=== PATIENT | female | born 1990 | race Caucasian/White ===

== ENCOUNTER 2023-10-12 21:07 | Emergency (ER) | payer BC ==
[2023-10-12 21:12] VITALS: RESP 18; TEMP 98.1
--- NOTE | 2023-10-12 21:23 | ED ---
Female Urogenital HPI - General Source: patient, RN notes reviewed Mode of arrival: ambulatory Limitations: no limitations <Malinda Neely - Last Filed: 10/12/23 23:44> <Madelin Watkins - Last Filed: 10/13/23 04:54> - General Chief complaint: Vaginal Bleeding Stated complaint: vaginal bleeding 13 weeks twins Time Seen by Provider: 10/12/23 21:22 - History of Present Illness Initial comments: 33-year-old female approximately 13 weeks gestation with twins presenting to the ER with a chief complaint of vaginal spotting. Patient is currently visiting from [place] on vacation. She states around 8:30 PM this evening she was resting and felt a gush in her vaginal region. She went to the bathroom and noticed blood. She states she called her OB who advised her to come to the ER for evaluation. She denies any abdominal cramping or pain. Denies any complications with current . Denies any fevers, chills, urinary complaints, chest pain, shortness of breath or peripheral edema. (Malinda Neely) - Related Data Allergies Allergy/AdvReac Type Severity Reaction Status Date / Time No Known Allergies Allergy Verified 10/12/23 21:11 Review of Systems ROS Other: All systems not noted in ROS Statement are negative. <Malinda Neely - Last Filed: 10/12/23 23:44> ROS Other: All systems not noted in ROS Statement are negative. <Madelin Watkins - Last Filed: 10/13/23 04:54> ROS Statement: Those systems with pertinent positive or pertinent negative responses have been documented in the HPI. Past Medical History Past Medical History: No Reported History History of Any Multi-Drug Resistant Organisms: None Reported Past Surgical History: No Surgical Hx Reported Past Psychological History: No Psychological Hx Reported Smoking Status: Never smoker Past Alcohol Use History: None Reported Past Drug Use History: None Reported <Malinda Neely - Last Filed: 10/12/23 23:44> General Exam Limitations: no limitations General appearance: alert, in no apparent distress Respiratory exam: Present: normal lung sounds bilaterally. Absent: respiratory distress, wheezes, rales, rhonchi, stridor Cardiovascular Exam: Present: regular rate, normal rhythm, normal heart sounds. Absent: systolic murmur, diastolic murmur, rubs, gallop, clicks GI/Abdominal exam: Present: soft, normal bowel sounds, other (Gravid abdomen). Absent: distended, guarding, rebound, rigid Extremities exam: Present: normal inspection, full ROM, normal capillary refill. Absent: tenderness, pedal edema, joint swelling, calf tenderness Neurological exam: Present: alert, oriented X3, CN II-XII intact Skin exam: Present: warm, dry, intact, pallor (Mild) <Malinda Neely - Last Filed: 10/12/23 23:44> Course Vital Signs 10/12/23 10/13/23 10/13/23 21:09 01:01 03:07 Temperature 98.1 F Pulse Rate 78 82 96 Respiratory 18 18 18 Rate Blood Pressure 122/84 101/67 124/75 O2 Sat by Pulse 100 100 98 Oximetry Medical Decision Making - Lab Data Result diagrams: 10/12/23 23:05 10/12/23 23:05 - Radiology Data Radiology results: report reviewed, image reviewed <Malinda Neely - Last Filed: 10/12/23 23:44> - Lab Data Result diagrams: 10/12/23 23:05 10/12/23 23:05 <Madelin Watkins - Last Filed: 10/13/23 04:54> - Medical Decision Making Was pt. sent in by a medical professional or institution ([facility]ON[facility] Waite, DOOR CLOSER MECHANIC, urgent care, hospital, or senior living...) When possible be specific @ -No Did you speak to anyone other than the patient for history (EMS, parent, family, police, friend...)? What history was obtained from this source @ -No Did you review nursing and triage notes (agree or disagree)? Why? @ -I reviewed and agree with nursing and triage notes Were old charts reviewed (outside hosp., previous admission, EMS record, old EKG, old radiological studies, urgent care reports/EKG's, senior living records)? Report findings @ -No old charts were reviewed Differential Diagnosis (chest pain, altered mental status, abdominal pain women, abdominal pain men, vaginal bleeding, weakness, fever, dyspnea, syncope, headache, dizziness, GI bleed, back pain, seizure, CVA, palpatations, mental health, musculoskeletal)? @ -Differential Vaginal Bleeding: : Spontaneous , threatened , molar , ectopic , bloody show, incompetent cervix, abruptiopla centa, placenta previa, uterine rupture, dysfunctional uterine bleeding, hemorrhage, uterine fibroids, this is not meant to be an all- inclusive list. EKG interpreted by me (3pts min.). @ -None X-rays interpreted by me (1pt min.). @ -None done CT interpreted by me (1pt min.). @ -None done U/S interpreted by me (1pt. min.). @ - ultrasound remarkable for 2 live IUPs. Fetus A measuring 13 weeks 4 days with heart [id number] bpm. Fetus B measuring 13 weeks 6 days with a heart rate.162 bpm. Suspected multifocal subchorionic hemorrhages. What testing was considered but not performed or refused? (CT, X-rays, U/S, labs)? Why? @ -None What meds were considered but not given or refused? Why? @ -None Did you discuss the management of the patient with other professionals (professionals i.e. , PA, DOOR CLOSER MECHANIC, lab, RT, psych nurse, community mental health social worker, calibrator barometers, teacher, motorcycle police officer, mental health case manager)? Give summary @ -No Was smoking cessation discussed for >3mins.? @ -No Was critical care preformed (if so, how long)? @ -No Were there social determinants of health that impacted care today? How? (Homelessness, low income, unemployed, alcoholism, drug addiction, transportation, low edu. Level, literacy, decrease access to med. care, senior living, rehab)? @ -Patient currently is vacationing from [place]. Was there de-escalation of care discussed even if they declined (Discuss DNR or withdrawal of care, Hospice)? DNR status @ -No What co-morbidities impacted this encounter? (DM, HTN, Smoking, COPD, CAD, Cancer, CVA, ARF, Chemo, Hep., AIDS, mental health diagnosis, sleep apnea, morbid obesity)? @ - Was patient admitted / discharged? Hospital course, mention meds given and route, prescriptions, significant lab abnormalities, going to OR and other pertinent info. @ -33-year-old female approximately 13 weeks gestation with twins presented to the ER with a chief complaint of vaginal spotting. History and physical exam completed. Vitals stable. Patient in no signs of acute distress but mildly pale appearing. No focal abdominal tenderness. Laboratory studies obtained remarkable for hemoglobin 11.3. Serum hCG and ABO/Rh pending. Urinalysis unremarkable. ultrasound remarkable for 2 live IUPs. Fetus A measuring 13 weeks 4 days with heart [id number] bpm. Fetus B measuring 13 weeks 6 days with a heart rate.162 bpm. Suspected multifocal subchorionic hemorrhages. Patient signed out to Madelin Watkins PA-C pending HCG, ABO/Rh results and disposition. (Malinda Neely) Patient signed out to me by Malinda Neely PA-C. She is blood type B-, RhoGAM is administered. hCG is WNL for gestational age. Mother is educated on subchorionic hemorrhage. Instructed to follow-up with her GEOLOGICAL SAMPLE TESTER back home. Discharged. Follow-up with PCP. Report back to ER with any new or worsening symptoms. Discussed return parameters and all questions answered. Patient conveyed verbal understanding and agreed to the plan. I discussed this case in detail with my attending Dr. Dixon (Madelin Watkins) - Lab Data Lab Results 10/12/23 10/12/23 10/12/23 Range/Units 22:00 23:05 23:05 WBC 7.9 (3.8-10.6) k/uL RBC 3.59 L (3.80-5.40) m/uL Hgb 11.3 L (11.4-16.0) gm/dL Hct 32.8 L (34.0-46.0) % MCV 91.4 (80.0-100.0) fL MCH 31.5 (25.0-35.0) pg MCHC 34.5 (31.0-37.0) g/dL RDW 12.7 (11.5-15.5) % Plt Count 209 (150-450) k/uL MPV 7.8 Neutrophils % 66 % Lymphocytes % 27 % Monocytes % 5 % Eosinophils % 1 % Basophils % 0 % Neutrophils # 5.2 (1.3-7.7) k/uL Lymphocytes # 2.1 (1.0-4.8) k/uL Monocytes # 0.4 (0-1.0) k/uL Eosinophils # 0.1 (0-0.7) k/uL Basophils # 0.0 (0-0.2) k/uL Sodium 136 L (137-145) mmol/L Potassium 3.8 (3.5-5.1) mmol/L Chloride 109 H (98-107) mmol/L Carbon Dioxide 19 L (22-30) mmol/L Anion Gap 8 mmol/L BUN 3 L (7-17) mg/dL Creatinine 0.38 L (0.52-1.04) mg/dL Est GFR (CKD-EPI)AfAm >90 (>60 ml/min/1.73 sqM) Est GFR (CKD-EPI)NonAf >90 (>60 ml/min/1.73 sqM) Glucose 84 (74-99) mg/dL Calcium 9.3 (8.4-10.2) mg/dL Total Bilirubin 0.2 (0.2-1.3) mg/dL AST 18 (14-36) U/L ALT 14 (4-34) U/L Alkaline Phosphatase 53 (38-126) U/L Total Protein 6.0 L (6.3-8.2) g/dL Albumin 3.6 (3.5-5.0) g/dL HCG, Quant >935111.0 mIU/mL Urine Color Colorless Urine Appearance Clear (Clear) Urine pH 6.0 (5.0-8.0) Ur Specific [place] 1.004 (1.001-1.035) Urine Protein Negative (Negative) Urine Glucose (UA) Negative (Negative) Urine Ketones Negative (Negative) Urine Blood Negative (Negative) Urine Nitrite Negative (Negative) Urine Bilirubin Negative (Negative) Urine Urobilinogen <2.0 (<2.0) mg/dL Ur Leukocyte Esterase Negative (Negative) Blood Type Blood Type Confirm Blood Type Recheck Bld Type Recheck Status Antibody Screen 10/12/23 10/12/23 Range/Units 23:05 23:30 WBC (3.8-10.6) k/uL RBC (3.80-5.40) m/uL Hgb (11.4-16.0) gm/dL Hct (34.0-46.0) % MCV (80.0-100.0) fL MCH (25.0-35.0) pg MCHC (31.0-37.0) g/dL RDW (11.5-15.5) % Plt Count (150-450) k/uL MPV Neutrophils % % Lymphocytes % % Monocytes % % Eosinophils % % Basophils % % Neutrophils # (1.3-7.7) k/uL Lymphocytes # (1.0-4.8) k/uL Monocytes # (0-1.0) k/uL Eosinophils # (0-0.7) k/uL Basophils # (0-0.2) k/uL Sodium (137-145) mmol/L Potassium (3.5-5.1) mmol/L Chloride (98-107) mmol/L Carbon Dioxide (22-30) mmol/L Anion Gap mmol/L BUN (7-17) mg/dL Creatinine (0.52-1.04) mg/dL Est GFR (CKD-EPI)AfAm (>60 ml/min/1.73 sqM) Est GFR (CKD-EPI)NonAf (>60 ml/min/1.73 sqM) Glucose (74-99) mg/dL Calcium (8.4-10.2) mg/dL Total Bilirubin (0.2-1.3) mg/dL AST (14-36) U/L ALT (4-34) U/L Alkaline Phosphatase (38-126) U/L Total Protein (6.3-8.2) g/dL Albumin (3.5-5.0) g/dL HCG, Quant mIU/mL Urine Color Urine Appearance (Clear) Urine pH (5.0-8.0) Ur Specific [place] (1.001-1.035) Urine Protein (Negative) Urine Glucose (UA) (Negative) Urine Ketones (Negative) Urine Blood (Negative) Urine Nitrite (Negative) Urine Bilirubin (Negative) Urine Urobilinogen (<2.0) mg/dL Ur Leukocyte Esterase (Negative) Blood Type B Negative Blood Type Confirm B Negative Blood Type Recheck No Previous Record Bld Type Recheck Status CABO Indicated Antibody Screen NEGATIVE Disposition <Malinda Neely - Last Filed: 10/12/23 23:44> Is patient prescribed a controlled substance at d/c from ED?: No Time of Disposition: 01:45 <Madelin Watkins - Last Filed: 10/13/23 04:54> Clinical Impression: Threatened Disposition: HOME SELF-CARE Condition: Fair Instructions (If sedation given, give patient instructions): Threatened Miscarriage (ED) Additional Instructions: Follow-up with your GEOLOGICAL SAMPLE TESTER. Report back to ER with any new or worsening symptoms. Referrals: None,Stated [Primary Care Provider] - 1-2 days
[2023-10-12 22:23] LABS: Appearance,Urine Clear (Clear); Bilirubin,Urine Negative (Negative); Blood,Urine Negative (Negative); Color,Urine Colorless; Glucose,Urine (UA) Negative (Negative); Ketones,Urine Negative (Negative); Leukocyte Esterase,Urine Negative (Negative); Nitrite,Urine Negative (Negative); Protein,Urine Negative (Negative); Specific Gravity,Urine 1.004 (1.001-1.035); Urobilinogen,Urine <2.0 mg/dL (<2.0)
--- NOTE | 2023-10-12 23:12 | US ---
EXAM: US First Trimester , Transabdominal CLINICAL HISTORY: Vaginal spotting TECHNIQUE: Real-time transabdominal obstetrical ultrasound of the maternal pelvis and a first trimester with image documentation. COMPARISON: No relevant prior studies available. FINDINGS: A twin live intrauterine is identified with 2 separate gestational sacs. Fetus A: heart rate is 155 beats per minute. The crown-rump length is 7.45 cm which corresponds to 13 weeks 4 days gestational age by ultrasound criteria. Fetus B: heart rate is 162 beats per minute. The crown-rump length is 7.9 cm which corresponds to 13 weeks 6 days gestational age by ultrasound criteria. Multiple suspected subchorionic hemorrhages are identified adjacent to the gestational sac including upper left uterus 6.9 x 3.3 x 1.2 cm, lower left uterus 3.5 x 1 x 1.3 cm in lower right uterus 3.5 x 1.9 x 1.5 cm. Uterus is 18.6 x 16.3 x 10.1 cm. Right ovary is 4.1 x 2.5 x 2.1 cm. Left ovary is 3.8 x 2.6 x 2.4 cm containing 1.1 cm diameter simple cyst. There is no adnexal mass or free fluid. IMPRESSION: 1. Twin live intrauterine gestation of approximately 13 weeks 4 days and 13 weeks 6 days 2. Suspected multifocal subchorionic hemorrhages.
[2023-10-12 23:17] LABS: Basophils % (A) 0 %; Eosinophils # (A) 0.1 k/uL (0-0.7); Eosinophils % (A) 1 %; HCT 32.8 % (34.0-46.0); HGB 11.3 gm/dL (11.4-16.0); Lymphocytes # (A) 2.1 k/uL (1.0-4.8); Lymphocytes % (A) 27 %; MCH 31.5 pg (25.0-35.0); MCHC 34.5 g/dL (31.0-37.0); MCV 91.4 fL (80.0-100.0); Mean Platelet Volume 7.8; Monocytes # (A) 0.4 k/uL (0-1.0); Monocytes % (A) 5 %; Neutrophils # (A) 5.2 k/uL (1.3-7.7); Neutrophils % (A) 66 %; Platelet Count 209 k/uL (150-450); RBC 3.59 m/uL (3.80-5.40); RDW 12.7 % (11.5-15.5); WBC 7.9 k/uL (3.8-10.6)
[2023-10-12 23:25] LABS: ALT 14 U/L (4-34); AST 18 U/L (14-36); African American GFR (CKD) >90 (>60 ml/min/1.73 sqM); Albumin 3.6 g/dL (3.5-5.0); Alkaline Phosphatase 53 U/L (38-126); Anion Gap 8 mmol/L; Blood Urea Nitrogen 3 mg/dL (7-17); Calcium 9.3 mg/dL (8.4-10.2); Carbon Dioxide 19 mmol/L (22-30); Chloride 109 mmol/L (98-107); Glucose 84 mg/dL (74-99); Non-African American GFR(CKD) >90 (>60 ml/min/1.73 sqM); Potassium 3.8 mmol/L (3.5-5.1); Sodium 136 mmol/L (137-145); Total Bilirubin 0.2 mg/dL (0.2-1.3)
[2023-10-13] MEDS: SODIUM CHLORIDE 0.9% 1,000 ML IV STA (00:57)
[2023-10-13] MEDS: ONDANSETRON 4 MG/2 ML VIAL IVP STA (01:19)
[2023-10-13 01:47] LABS: HCG,Quantitative Serum >225000.0 mIU/mL
[2023-10-13] MEDS: Rhogam IMMUNE GLOBULIN 1,500 UNIT/1 ML IM ONE (03:05)
[2023-10-13 03:09] VITALS: BP 124/75; PULSE 96
== END 2023-10-13 03:12 | disposition home or self-care (01) ==
LOC: EC 21:07
DX: O20.0 Threatened abortion (principal); Z3A.13 13 weeks gestation of pregnancy
CPT/HCPCS: 36415; 86900; 86901; 80053; 85025; 86850; 81003; 84702; 76801; 76802; 99284; 96360; 96361; 96372; J2790